=== PATIENT | male | born 1995 | race Caucasian/White ===

== ENCOUNTER 2018-03-13 21:37 | Emergency (ER) | payer SELFPAY ==
[~2018-03-13] VITALS: Ht 175.3 cm; Wt 77.0 kg
[2018-03-14 02:52] LABS: *COCAINE SCREEN URINE NEGATIVE (NEGATIVE); METHADONE URINE SCREEN NEGATIVE (NEGATIVE); OPIATES URINE SCREEN NEGATIVE (NEGATIVE)
[2018-03-14 02:54] LABS: *AMPHETAMINES SCREEN URINE NEGATIVE (NEGATIVE); *BARBITURATES SCREEN URINE NEGATIVE (NEGATIVE); *BENZODIAZEPINES SCREEN URINE NEGATIVE (NEGATIVE); CANNABINOID URINE SCREEN PRESUMTIVE POSITIVE (NEGATIVE); PHENCYCLIDINE URINE SCREEN NEGATIVE (NEGATIVE)
[2018-03-14 05:41] VITALS: BP 111/56
== END 2018-03-14 05:44 | disposition home or self-care (01) ==
LOC: ER 21:37
DX: T51.0X1A Toxic effect of ethanol, accidental (unintentional), initial encounter (principal); Y92.89 Other specified places as the place of occurrence of the external cause; F10.129 Alcohol abuse with intoxication, unspecified; Y90.8 Blood alcohol level of 240 mg/100 ml or more
CPT/HCPCS: 36415; 80305; 99284; G0482

== ENCOUNTER 2022-10-23 23:41 | Emergency (ER) | payer MEDICAID ==
[~2022-10-23] VITALS: Ht 165.1 cm; Wt 68.0 kg
[2022-10-23 23:50] VITALS: BP 123/85
[2022-10-24] MEDS ORDERED: LORAZEPAM 2MG/ML CPJ IV ONE
[2022-10-24 00:36] LABS: HEMOGLOBIN. 13.6 g/dL (14.0-18.0); MEAN CORPUSCULAR HEMOGLOBIN 29.5 pg (28.0-32.0); MEAN CORPUSCULAR VOLUME 86.6 fL (80.0-94.0); MEAN PLATELET VOLUME 7.2 fl (7.4-10.4); PLATELET 302 x1000/uL (130-400); RED BLOOD CELL COUNT 4.62 mill/uL (4.7-6.1); RED CELL DISTRIBUTION WIDTH 14.5 % (11.6-14.6)
[2022-10-24 00:40] LABS: CHLORIDE 105 mEq/L (98-107)
[2022-10-24 00:48] LABS: ETHANOL BLOOD < 10 mg/dL (-10)
[2022-10-24 01:28] LABS: PLATELET ESTIMATE NORMAL
== END 2022-10-24 06:50 | disposition home or self-care (01) ==
LOC: ER 23:48
DX: T65.91XA Toxic effect of unspecified substance, accidental (unintentional), initial encounter (principal); Y92.9 Unspecified place or not applicable
CPT/HCPCS: 36415; 80053; 80320; 85025; 96374; 99283; J2060; Z7610; G0480